=== PATIENT | female | born 1995 | race Caucasian/White ===

== ENCOUNTER 2017-06-14 16:13 | Emergency (ER) | payer BC, OTHER ==
[~2017-06-14] VITALS: Ht 162.6 cm; Wt 59.7 kg
[2017-06-14 16:15] VITALS: TEMP 36.5; Ht 162.6 cm; Wt 59.7 kg
[2017-06-14] MEDS ORDERED: KETOROLAC TROMETHAMINE 30 MG/ML VIAL IV STA (16:28)
--- NOTE | 2017-06-14 16:40 | EMERGENCY ROOM VISIT NOTE ---
History First contact with patient: 16:18 Chief Complaint: PELVIC PAIN Stated Complaint: SEVERE MENSTRAL CRAMPS, IUD RELATED History of Present Illness The patient is a 22 year old female who presents to the Emergency Room with complaints of pelvic cramping. The patient reports she had a Melany IUD inserted approximately 4 months ago. She states that after the insertion, she had severe cramps and was told that this was normal. These eventually subsided. She had minimal spotting at first, but states that she has not had any vaginal bleeding since then. She reports that over the past 3 weeks, she has had increased cramping and has cramping across the lower abdomen daily. Her pain increased today. She called [facility] and spoke with a nurse who recommended that she go to urgent care. She was seen there and sent here for further evaluation. She rates her current discomfort a 7/10. She denies any associated urinary symptoms, nausea or vomiting. She denies any vaginal discharge. She states that her to having the IUD, she was on control pills for several years. Prior to that, she did have irregular and heavy periods. She sees [facility] locally. Review of Systems A complete 10 point review of systems was reviewed with the patient with pertinent positives and negatives as per history of present illness. All else were negative. Social History Smoking Status: Never Smoker Current/Historical Medications Scheduled Levonorgestrel (Iud) (Melany), INT UTER UD Scheduled PRN Loratadine (Claritin), 10 MG PO DAILY PRN for Seasonal Allergies Physical Exam Vital Signs Date Time Temp Pulse Resp B/P (MAP) Pulse Ox O2 Delivery O2 Flow Rate FiO2 06/14/17 18:15 92 18 132/87 99 06/14/17 16:15 36.5 98 18 147/94 99 Room Air Physical Exam VITALS: Vitals are noted on the nurse's note and reviewed by myself. Vital signs stable. GENERAL: This is a 22-year-old female, in no acute distress, nondiaphoretic, well-developed well-nourished. EARS: External auditory canals clear, tympanic membranes pearly kuhn without erythema or effusion bilaterally. EYES: Pupils equal round and reactive to light and accommodation. MOUTH: Mucous membranes moist. Tonsils are not enlarged. Pharynx without erythema or exudate. HEART: Regular rate and rhythm without murmurs gallops or rubs. LUNGS: Clear to auscultation bilaterally without wheezes, rales or rhonchi. ABDOMEN: Positive bowel sounds x 4. Soft, nontender to palpation without masses or organomegaly. NEURO: Patient was alert and oriented to person place and time. Medical Decision & Procedures ER Provider Diagnostic Interpretation: PELVIC COMPLETE NON OB, TRANSVAG-FEMALE PELVIS CLINICAL HISTORY: 22 years-old Female presenting with pelvic cramping, IUD placed in February, last menstrual period in February. TECHNIQUE: Real-time grayscale and color and spectral Doppler ultrasound imaging of the pelvis was performed first using a transabdominal probe and subsequently transvaginal for better characterization. COMPARISON: None. FINDINGS: Uterus: Normal. Anteverted. The uterus measures 2.9 x 3.9 x 4.5 cm. Endometrial cavity contains a intrauterine device, which appears positioned in the upper uterine segment towards the fundus. Linear hyperechogenicity at the level of the cervix may represent the associated string. Endometrium normal-appearing. Cervix normal. Right adnexa: Right ovary normal. Right ovary measures 3.1 x 1.7 x 2.1 cm. Normal color Doppler flow and arterial and venous waveforms within the ovarian parenchyma. Small amount of free fluid in the right adnexa, likely physiologic. Left adnexa: Left ovary contains a corpus luteum. Left ovary measures 3.3 x 1.7 x 2.1 cm. Normal color Doppler flow and arterial and venous waveforms within the ovarian parenchyma. Other: No free fluid in the cul-de-sac. IMPRESSION: Appropriately positioned intrauterine device. Otherwise normal exam. Laboratory Results 06/14/17 16:40 Red Blood Count 5.22, Mean Corpuscular Volume 86.8, Mean Corpuscular Hemoglobin 30.5, Mean Corpuscular Hemoglobin Concent 35.1, Mean Platelet Volume 10.9, Neutrophils (%) (Auto) 55.1, Lymphocytes (%) (Auto) 33.0, Monocytes (%) (Auto) 10.4, Eosinophils (%) (Auto) 1.1, Basophils (%) (Auto) 0.3, Neutrophils # (Auto ) 4.06, Lymphocytes # (Auto) 2.43, Monocytes # (Auto) 0.77, Eosinophils # (Auto ) 0.08, Basophils # (Auto) 0.02 06/14/17 16:40 Test 06/14/17 16:40 White Blood Count 7.37 K/uL (4.8-10.8) Red Blood Count 5.22 M/uL (4.2-5.4) Hemoglobin 15.9 g/dL (12.0-16.0) Hematocrit 45.3 % (37-47) Mean Corpuscular Volume 86.8 fL (80-100) Mean Corpuscular Hemoglobin 30.5 pg (25-34) Mean Corpuscular Hemoglobin Concent 35.1 g/dl (32-36) Platelet Count 246 K/uL (130-400) Mean Platelet Volume 10.9 fL (7.4-10.4) Neutrophils (%) (Auto) 55.1 % Lymphocytes (%) (Auto) 33.0 % Monocytes (%) (Auto) 10.4 % Eosinophils (%) (Auto) 1.1 % Basophils (%) (Auto) 0.3 % Neutrophils # (Auto) 4.06 K/uL (1.4-6.5) Lymphocytes # (Auto) 2.43 K/uL (1.2-3.4) Monocytes # (Auto) 0.77 K/uL (0.11-0.59) Eosinophils # (Auto) 0.08 K/uL (0-0.5) Basophils # (Auto) 0.02 K/uL (0-0.2) RDW Standard Deviation 39.8 fL (36.4-46.3) RDW Coefficient of Variation 12.4 % (11.5-14.5) Immature Granulocyte % (Auto) 0.1 % Immature Granulocyte # (Auto) 0.01 K/uL (0.00-0.02) Urine Color YELLOW Urine Appearance CLOUDY (CLEAR) Urine pH 8.5 (4.5-7.5) Urine Specific [place] 1.026 (1.000-1.030) Urine Protein NEG (NEG) Urine Glucose (UA) NEG (NEG) Urine Ketones NEG (NEG) Urine Occult Blood NEG (NEG) Urine Nitrite NEG (NEG) Urine Bilirubin NEG (NEG) Urine Urobilinogen NEG (NEG) Urine Leukocyte Esterase MODERATE (NEG) Urine WBC (Auto) 5-10 /hpf (0-5) Urine RBC (Auto) 0-4 /hpf (0-4) Urine Hyaline Casts (Auto) 1-5 /lpf (0-5) Urine Epithelial Cells (Auto) >30 /lpf (0-5) Urine Bacteria (Auto) 1+ (NEG) Urine Test NEG (NEG) Anion Gap 6.0 mmol/L (3-11) Est Creatinine Clear Calc Drug Dose 110.8 ml/min Estimated GFR () 144.6 Estimated GFR (Non- 124.7 BUN/Creatinine Ratio 9.1 (10-20) Calcium Level 9.0 mg/dl (8.5-10.1) Medications Administered Medications (Trade) Dose Ordered Sig/Amita Route Start Time Stop Time Status Last Admin Dose Admin Ketorolac Tromethamine (Toradol Inj) 30 mg NOW STAT IV 06/14/17 16:28 06/14/17 16:30 DC 06/14/17 16:46 30 MG Medical Decision Differential diagnosis includes IUD migration, ovarian cyst, ovulatory pain, PID , UTI, among others. The patient is a 22-year-old female who presents today complaining of pelvic cramping for the past several weeks. Labs revealed no leukocytosis, anemia, or concerning electrolyte abnormalities. Urinalysis was suggestive of contamination vs infection and will be sent for culture. Urine was negative. Pelvic ultrasound was unremarkable and showed good placement of the IUD. I do not suspect PID given the lack of vaginal discharge or fever. She was encouraged to follow up with [facility] this week for a recheck. Based on the patient's presentation and work up, I feel the patient is stable for outpatient treatment. The patient was educated to return to the emergency department for any worsening of their current condition or new/concerning symptoms. She will follow up with [facility]. Medication Reconcilliation Current Medication List: was personally reviewed by me Blood Pressure Screening Patient's blood pressure: Normal blood pressure Impression Primary Impression: Pelvic pain Departure Information Dispostion Home / Self-Care Condition GOOD Referrals Christiane Reich D.O. (PCP) Patient Instructions My [facility] Additional Instructions Ibuprofen, 600 mg every 6 hours for the next several days then as needed for pain. You may use a heating pad for some relief of your discomfort. Call [facility] this week to schedule a follow-up appointment from today' s visit. Return to the emergency department with any worsening pain, vomiting, fevers or any other new/concerning symptoms.
[2017-06-14 16:54] LABS: URINE APPEARANCE CLOUDY (CLEAR); URINE BILIRUBIN NEG (NEG); URINE COLOR YELLOW; URINE EPITHELIAL CELL AUTO >30 /lpf (0-5); URINE NITRITE NEG (NEG); URINE PH 8.5 (4.5-7.5); URINE SPECIFIC GRAVITY 1.026 (1.000-1.030); UROBILINOGEN NEG (NEG); ZZUR CULT IF INDIC CLEAN CATCH YES
[2017-06-14 16:55] LABS: BASO % 0.3 %; BASO ABS # 0.02 K/uL (0-0.2); COMPLETE YES; EOS % 1.1 %; HEMATOCRIT 45.3 % (37-47); IG% 0.1 %; LYMPH ABS # 2.43 K/uL (1.2-3.4); MANUAL MICROSCOPIC REQUIRED? NO; MEAN CELL VOLUME 86.8 fL (80-100); MEAN CORPUSCULAR HEMOGLOBIN 30.5 pg (25-34); MEAN CORPUSCULAR HGB CONC 35.1 g/dl (32-36); MEAN PLATELET VOLUME 10.9 fL (7.4-10.4); MONO % 10.4 %; NEUT % 55.1 %; PLATELET COUNT 246 K/uL (130-400); RED BLOOD COUNT 5.22 M/uL (4.2-5.4); REVIEW REQ? NO; WHITE BLOOD COUNT 7.37 K/uL (4.8-10.8)
[2017-06-14 17:13] LABS: BUN/CREATININE RATIO 9.1 (10-20); CREATININE 0.7 mg/dl (0.60-1.20)
[2017-06-14] MEDS ORDERED: LEVO1IUD INT UTER (17:18)
[2017-06-14] MEDS ORDERED: CLR10 PO (17:18)
--- NOTE | 2017-06-14 17:34 | DIAGNOSTIC IMAGING REPORT ---
PELVIC COMPLETE NON OB, TRANSVAG-FEMALE PELVIS CLINICAL HISTORY: 22 years-old Female presenting with pelvic cramping, IUD placed in February, last menstrual period in February. TECHNIQUE: Real-time grayscale and color and spectral Doppler ultrasound imaging of the pelvis was performed first using a transabdominal probe and subsequently transvaginal for better characterization. COMPARISON: None. FINDINGS: Uterus: Normal. Anteverted. The uterus measures 2.9 x 3.9 x 4.5 cm. Endometrial cavity contains a intrauterine device, which appears positioned in the upper uterine segment towards the fundus. Linear hyperechogenicity at the level of the cervix may represent the associated string. Endometrium normal-appearing. Cervix normal. Right adnexa: Right ovary normal. Right ovary measures 3.1 x 1.7 x 2.1 cm. Normal color Doppler flow and arterial and venous waveforms within the ovarian parenchyma. Small amount of free fluid in the right adnexa, likely physiologic. Left adnexa: Left ovary contains a corpus luteum. Left ovary measures 3.3 x 1.7 x 2.1 cm. Normal color Doppler flow and arterial and venous waveforms within the ovarian parenchyma. Other: No free fluid in the cul-de-sac. IMPRESSION: Appropriately positioned intrauterine device. Otherwise normal exam. Electronically signed by: Patrice Ordonez M.D. 06/14/2017 5:33 PM Dictated Date/Time: 06/14/2017 5:30 PM
[2017-06-14 18:15] VITALS: BP 132/87; PULSE 92; O2SAT 99
== END 2017-06-14 18:17 | disposition home or self-care (01) ==
LOC: C.EDB 16:14 → C.EDA 18:17
DX: R10.2 Pelvic and perineal pain (principal); Z97.5 Presence of (intrauterine) contraceptive device